=== PATIENT | female | born 1935 | race Caucasian/White ===

== ENCOUNTER 2016-12-24 04:33 | Emergency (ER) | payer OTHER ==
[~2016-12-24] VITALS: Ht 157.5 cm; Wt 64.8 kg
[~2016-12-24 04:33] MED LIST: ADVAIR 250/501 DISK IH; ADVAIR HFA120 INHALA IH; BUPROPION HCL150 M2 PO; CYANOCOBAL1000 MCG/2 IM; DETROL2 MG PO; DIOVAN HCT 11 TABLET PO; DITROPAN5 MG PO; HEPARIN SO5000 UNITS SC; LEXAPRO20 MG PO; LOSARTAN POTASS50 MG PO; PLAVIX75 MG PO; PREDNISONE; PREVACID30 MG PO; PROTONIX40 MG PO; QUESTRAN POWDE378 GM PO; SPIRIVA1 INHALATI IH; THERAGRAN1 TABLET PO; XANAX0.25 MG PO
[2016-12-24 05:31] LABS: HEMATOCRIT 35.5 % (36.0-46.0); MCH 32.6 PG (29.0-34.0); MCHC 34.1 G/DL (30.0-36.0); MCV 95.7 FL (83-99); MEAN PLAT.VOLUME 9.3 uM^3 (9.5-12.4); PLATELET COUNT 221 K/uL (156-360); RBC DIS.WIDTH-CV 13.6 % (11.8-14.6); RBC DIS.WIDTH-SD 48.4 % (39-53); RED BLOOD COUNT 3.71 M/uL (3.80-5.20)
[2016-12-24 05:37] LABS: CHLORIDE 105 mEq/L (99-109); POTASSIUM 4.1 mEq/L (3.7-5.4); PROTHROMBIN TIME 10.6 (9.2-11.2); PTT 31.2 (25-32); SODIUM 138 mEq/L (136-147)
[2016-12-24 05:39] LABS: GLUCOSE 97 mg/dL (70-99)
[2016-12-24 05:40] LABS: ANION GAP 9 MEQ/L (2-14)
[2016-12-24 05:43] LABS: GFR ESTIMATE (CALCULATED) 56 mL/min/
[2016-12-24 05:44] LABS: UREA NITROGEN (BUN) 23 mg/dL (9-23)
[2016-12-24 08:28] VITALS: BP 99/69
== END 2016-12-24 08:29 | disposition home or self-care (01) ==
LOC: EME → EDSEX 04:33 → EME 04:33 → EDBD 04:33 → EME 08:29
PROVIDERS: Emergency Medicine
PROC: 0HQ1XZZ Repair Face Skin, External Approach (ICD-10-PCS; principal; 2016-12-24)
DX: S01.112A Laceration without foreign body of left eyelid and periocular area, initial encounter (principal); S00.33XA Contusion of nose, initial encounter; S60.051A Contusion of right little finger without damage to nail, initial encounter; W06.XXXA Fall from bed, initial encounter; I10 Essential (primary) hypertension; Z79.02 Long term (current) use of antithrombotics/antiplatelets; Z87.891 Personal history of nicotine dependence
CPT/HCPCS: 70450; 70486; 72125; 73140; 80048; 85027; 85610; 85730; 99281; 99285

== ENCOUNTER 2017-01-19 21:21 | Inpatient (IN) | payer OTHER ==
[~2017-01-19] VITALS: Ht 152.4 cm; Wt 60.0 kg
[2017-01-19 22:32] LABS: EOSINOPHIL (%) 0.2 % (0-5); HEMATOCRIT 34.1 % (36.0-46.0); IMMATURE GRANULOCYTE (%) 0.5 % (0.0-0.7); IMMATURE GRANULOCYTE COUNT 0.1 K/uL; INSTRUMENT ABS NEUTROPHIL CT 8.9 K/uL; LYMPHOCYTE COUNT 1.4 K/uL (1.0-2.8); MCH 33.2 PG (29.0-34.0); MCHC 34.6 G/DL (30.0-36.0); MCV 96.1 FL (83-99); MEAN PLAT.VOLUME 9.8 uM^3 (9.5-12.4); NEUTROPHIL (%) 78.1 % (45-76); NEUTROPHIL COUNT 8.9 K/uL (1.8-6.4); PLATELET COUNT 254 K/uL (156-360); RBC DIS.WIDTH-CV 13.5 % (11.8-14.6); RED BLOOD COUNT 3.55 M/uL (3.80-5.20); WHITE BLOOD COUNT 11.4 K/uL (4.1-10.2)
[2017-01-19 22:38] LABS: CHLORIDE 105 mEq/L (99-109); SODIUM 138 mEq/L (136-147)
[2017-01-19 22:39] LABS: GLUCOSE 124 mg/dL (70-99)
[2017-01-19 22:41] LABS: ANION GAP 9 MEQ/L (2-14)
[2017-01-19 22:43] LABS: GFR ESTIMATE (CALCULATED) 35 mL/min/
[2017-01-19 22:44] LABS: UREA NITROGEN (BUN) 26 mg/dL (9-23)
[2017-01-19 22:46] LABS: CREATINE KINASE 161 IU/L (1-294); TOTAL CK 161 IU/L (1-294)
[2017-01-19 22:52] LABS: CK-MB 1.9 ng/mL (0.0-4.9)
[2017-01-19 23:09] LABS: ADD MIUA? YES; BILIRUBIN NEGATIVE; BLOOD NEGATIVE; COLOR YELLOW ((YELLOW)); GLUCOSE (STRIP) NEGATIVE; KETONES NEGATIVE; LEUKOCYTES MODERATE; NITRITE POSITIVE; PROTEIN (STRIP) NEGATIVE; SPECIFIC GRAVITY 1.017 (1.000-1.030); UROBILINOGEN 0.2 MG/DL (0.2-1.0)
[2017-01-19 23:20] LABS: BACTERIA NONE SEEN /HPF; EPITHELIAL CELLS RARE /HPF; MUCUS TRACE /LPF; RED BLOOD CELLS 0-5 /HPF (0-5); UCUL ADDED? NO; WHITE BLOOD CELLS 30-40 /HPF (0-5)
[2017-01-19] MEDS ORDERED: CYANOCOBAL1000 MCG/2 IM (23:31)
[2017-01-19] MEDS ORDERED: MYRBETRIQ25 MG PO (23:32)
[2017-01-19] MEDS ORDERED: DAILY VITE1 EAC1 PO (23:32)
[2017-01-19] MEDS ORDERED: CALCIUM 600 +1 EA16 PO (23:32)
[2017-01-19] MEDS ORDERED: VITAMIN B-12500 MC5 SL (23:33)
[2017-01-20 04:10] VITALS: BP 126/59
[2017-01-20 07:17] VITALS: BP 118/54
[2017-01-20 10:04] LABS: HEMATOCRIT 30.1 % (36.0-46.0); MCH 33.9 PG (29.0-34.0); MCHC 33.9 G/DL (30.0-36.0); MEAN PLAT.VOLUME 9.9 uM^3 (9.5-12.4); PLATELET COUNT 201 K/uL (156-360); RBC DIS.WIDTH-CV 13.9 % (11.8-14.6); RBC DIS.WIDTH-SD 50.4 % (39-53); RED BLOOD COUNT 3.01 M/uL (3.80-5.20); WHITE BLOOD COUNT 9.3 K/uL (4.1-10.2)
[2017-01-20 10:32] LABS: ANION GAP 9 MEQ/L (2-14); CHLORIDE 109 MEQ/L (99-109); GLUCOSE 118 mg/dL (70-99); POTASSIUM 3.7 MEQ/L (3.7-5.4); SAMPLE HEMOLYSIS CHECK 0; SAMPLE ICTERIC CHECK 0; SAMPLE LIPEMIA CHECK 0; SODIUM 141 MEQ/L (136-147); UREA NITROGEN (BUN) 22 mg/dL (9-23)
[2017-01-20 10:33] LABS: GFR ESTIMATE (CALCULATED) 56 mL/min/
[2017-01-20 16:22] VITALS: BP 136/62
[2017-01-20 22:57] VITALS: BP 152/63
[2017-01-21 07:41] LABS: ANION GAP 6 MEQ/L (2-14); CHLORIDE 110 MEQ/L (99-109); GFR ESTIMATE (CALCULATED) > 59 mL/min/; GLUCOSE 77 mg/dL (70-99); POTASSIUM 3.6 MEQ/L (3.7-5.4); SAMPLE HEMOLYSIS CHECK 0; SAMPLE ICTERIC CHECK 0; SAMPLE LIPEMIA CHECK 0; SODIUM 139 MEQ/L (136-147); UREA NITROGEN (BUN) 14 mg/dL (9-23)
[2017-01-21 08:01] VITALS: BP 109/54
[2017-01-21 16:18] VITALS: BP 158/71
[2017-01-21 23:02] VITALS: BP 171/73
[2017-01-22 08:27] VITALS: BP 114/57
[2017-01-22 09:52] LABS: EOSINOPHIL (%) 2.2 % (0-5); EOSINOPHIL COUNT 0.2 K/uL (0-0.3); HEMATOCRIT 29.2 % (36.0-46.0); IMMATURE GRANULOCYTE (%) 0.4 % (0.0-0.7); INSTRUMENT ABS NEUTROPHIL CT 5.2 K/uL; LYMPHOCYTE COUNT 1.4 K/uL (1.0-2.8); MCH 33.2 PG (29.0-34.0); MCHC 34.2 G/DL (30.0-36.0); MEAN PLAT.VOLUME 9.9 uM^3 (9.5-12.4); MONOCYTE (%) 12.7 % (3-12); NEUTROPHIL (%) 66.9 % (45-76); NEUTROPHIL COUNT 5.2 K/uL (1.8-6.4); PLATELET COUNT 197 K/uL (156-360); RBC DIS.WIDTH-CV 13.3 % (11.8-14.6); RBC DIS.WIDTH-SD 47.5 % (39-53); RED BLOOD COUNT 3.01 M/uL (3.80-5.20); WHITE BLOOD COUNT 7.8 K/uL (4.1-10.2)
[2017-01-22 10:20] LABS: ANION GAP 9 MEQ/L (2-14); CHLORIDE 105 MEQ/L (99-109); GFR ESTIMATE (CALCULATED) > 59 mL/min/; POTASSIUM 3.2 MEQ/L (3.7-5.4); SAMPLE HEMOLYSIS CHECK 0; SAMPLE ICTERIC CHECK 0; SAMPLE LIPEMIA CHECK 0; SODIUM 139 MEQ/L (136-147); UREA NITROGEN (BUN) 11 mg/dL (9-23)
[2017-01-22 10:22] LABS: GLUCOSE 97 mg/dL (70-99)
[2017-01-22 18:02] VITALS: BP 168/70
[2017-01-22 23:16] VITALS: BP 144/69
[2017-01-23 06:40] LABS: EOSINOPHIL (%) 3.4 % (0-5); EOSINOPHIL COUNT 0.3 K/uL (0-0.3); HEMATOCRIT 28.4 % (36.0-46.0); IMMATURE GRANULOCYTE (%) 0.6 % (0.0-0.7); IMMATURE GRANULOCYTE COUNT 0.1 K/uL; INSTRUMENT ABS NEUTROPHIL CT 4.3 K/uL; MCH 32.9 PG (29.0-34.0); MCHC 33.8 G/DL (30.0-36.0); MCV 97.3 FL (83-99); MEAN PLAT.VOLUME 9.8 uM^3 (9.5-12.4); MONOCYTE (%) 13.8 % (3-12); MONOCYTE COUNT 1.1 K/uL (0-0.8); NEUTROPHIL (%) 55.7 % (45-76); NEUTROPHIL COUNT 4.3 K/uL (1.8-6.4); PLATELET COUNT 199 K/uL (156-360); RBC DIS.WIDTH-CV 13.4 % (11.8-14.6); RBC DIS.WIDTH-SD 48.1 % (39-53); RED BLOOD COUNT 2.92 M/uL (3.80-5.20); WHITE BLOOD COUNT 7.7 K/uL (4.1-10.2)
[2017-01-23 07:19] LABS: ANION GAP 8 MEQ/L (2-14); CHLORIDE 105 MEQ/L (99-109); GFR ESTIMATE (CALCULATED) 56 mL/min/; GLUCOSE 74 mg/dL (70-99); SAMPLE HEMOLYSIS CHECK 0; SAMPLE ICTERIC CHECK 0; SAMPLE LIPEMIA CHECK 0; SODIUM 137 MEQ/L (136-147); UREA NITROGEN (BUN) 16 mg/dL (9-23)
[2017-01-23 07:23] LABS: POTASSIUM 3.9 MEQ/L (3.7-5.4)
[2017-01-23 08:01] VITALS: BP 150/68
[2017-01-23] MEDS ORDERED: CEFTIN500 MG PO (11:41)
[2017-01-23 16:51] VITALS: BP 141/69
== END 2017-01-23 17:45 | DRG 689 ==
LOC: EME → EDBD 21:21 → EDOF 01-20 02:35 → 5EAST 01-20 02:35
PROVIDERS: Emergency Medicine; Hospitalist; Internal Medicine; Nurse Practitioner Family
DX: N39.0 Urinary tract infection, site not specified (principal); B96.20 Unspecified Escherichia coli [E. coli] as the cause of diseases classified elsewhere; G93.41 Metabolic encephalopathy; N17.9 Acute kidney failure, unspecified; E86.0 Dehydration; J44.9 Chronic obstructive pulmonary disease, unspecified; D64.9 Anemia, unspecified; F03.90 Unspecified dementia, unspecified severity, without behavioral disturbance, psychotic disturbance, mood disturbance, and anxiety; I10 Essential (primary) hypertension; R26.2 Difficulty in walking, not elsewhere classified; K50.90 Crohn's disease, unspecified, without complications; F41.9 Anxiety disorder, unspecified; F32.9 Major depressive disorder, single episode, unspecified; Z82.49 Family history of ischemic heart disease and other diseases of the circulatory system; Z86.73 Personal history of transient ischemic attack (TIA), and cerebral infarction without residual deficits; Z91.83 Wandering in diseases classified elsewhere
CPT/HCPCS: 71020; 80048; 81003; 82550; 82553; 83605; 85025; 85027; 87040; 87077; 87086; 87186; 93005; 94640; 94640 76; 97530 GO; 97530 GP; 99281; 99285; J0696; J1650; J7030; J7050

== ENCOUNTER 2017-06-08 11:39 | Emergency (ER) | payer OTHER ==
[~2017-06-08] VITALS: Ht 157.5 cm; Wt 66.2 kg
[~2017-06-08 11:39] MED LIST changes: +CALCIUM 600 +1 EA16 PO; +CEFTIN500 MG PO; +DAILY VITE1 EAC1 PO; +MYRBETRIQ25 MG PO; +VITAMIN B-12500 MC5 SL
[2017-06-08 12:36] LABS: EOSINOPHIL (%) 3.6 % (0-5); EOSINOPHIL COUNT 0.2 K/uL (0-0.3); HEMATOCRIT 33.8 % (36.0-46.0); IMMATURE GRANULOCYTE (%) 0.5 % (0.0-0.7); INSTRUMENT ABS NEUTROPHIL CT 3.8 K/uL; LYMPHOCYTE COUNT 1.5 K/uL (1.0-2.8); MCH 32.3 PG (29.0-34.0); MCHC 33.7 G/DL (30.0-36.0); MCV 95.8 FL (83-99); MEAN PLAT.VOLUME 9.3 uM^3 (9.5-12.4); MONOCYTE (%) 12.7 % (3-12); MONOCYTE COUNT 0.8 K/uL (0-0.8); NEUTROPHIL (%) 59.5 % (45-76); NEUTROPHIL COUNT 3.8 K/uL (1.8-6.4); PLATELET COUNT 214 K/uL (156-360); RBC DIS.WIDTH-CV 13.8 % (11.8-14.6); RBC DIS.WIDTH-SD 48.3 % (39-53); RED BLOOD COUNT 3.53 M/uL (3.80-5.20); WHITE BLOOD COUNT 6.4 K/uL (4.1-10.2)
[2017-06-08 12:45] LABS: PROTHROMBIN TIME 11.9 SEC (10.2-12.9)
[2017-06-08 12:48] LABS: CHLORIDE 105 mEq/L (99-109); POTASSIUM 4.3 mEq/L (3.7-5.4); SODIUM 137 mEq/L (136-147)
[2017-06-08 12:50] LABS: GLUCOSE 88 mg/dL (70-99)
[2017-06-08 12:51] LABS: ANION GAP 8 MEQ/L (2-14)
[2017-06-08 12:53] LABS: GFR ESTIMATE (CALCULATED) > 59 mL/min/
[2017-06-08 12:54] LABS: UREA NITROGEN (BUN) 23 mg/dL (9-23)
[2017-06-08 15:28] VITALS: BP 107/80
== END 2017-06-08 15:32 ==
LOC: EME 11:39
PROVIDERS: Emergency Medicine
DX: N93.9 Abnormal uterine and vaginal bleeding, unspecified (principal); J44.9 Chronic obstructive pulmonary disease, unspecified; I10 Essential (primary) hypertension; F32.9 Major depressive disorder, single episode, unspecified; Z90.710 Acquired absence of both cervix and uterus; Z87.440 Personal history of urinary (tract) infections; F41.9 Anxiety disorder, unspecified; G89.29 Other chronic pain; Z86.73 Personal history of transient ischemic attack (TIA), and cerebral infarction without residual deficits; Z87.891 Personal history of nicotine dependence; Z88.8 Allergy status to other drugs, medicaments and biological substances
CPT/HCPCS: 80048; 85025; 85610; 99281; 99285